=== PATIENT | female | born 1950 | race Caucasian/White ===

== ENCOUNTER 2022-09-18 05:51 | Day surgery (SDC) | payer MEDICARE, MEDICAID ==
[2022-09-16 14:33] VITALS: BMI 40.7
[2022-09-18] MEDS ORDERED: Lidocaine 1% (PF) 30 ML VIAL ONE (07:37)
[2022-09-18] MEDS ORDERED: PROPOFOL 60 ML ONE (07:37)
[2022-09-18] MEDS ORDERED: Ketamine 50 MG/ML (10ML VIAL) ONE (07:38)
[2022-09-18] MEDS ORDERED: Lidocaine 1% PF 5 ML VIAL ONE (07:39)
== END 2022-09-18 09:10 | disposition home or self-care (01) ==
LOC: CSHSDC 05:51
PROVIDERS: ATTEND Internal Medicine Gastroenterology
PROC: 0DB68ZX Excision of Stomach, Via Natural or Artificial Opening Endoscopic, Diagnostic (ICD-10-PCS; principal; 2022-09-18)
PROC: 0D757ZZ Dilation of Esophagus, Via Natural or Artificial Opening (ICD-10-PCS; 2022-09-18)
PROC: 0DBM8ZZ Excision of Descending Colon, Via Natural or Artificial Opening Endoscopic (ICD-10-PCS; 2022-09-18)
PROC: 0DBP8ZZ Excision of Rectum, Via Natural or Artificial Opening Endoscopic (ICD-10-PCS; 2022-09-18)
DX: D12.8 Benign neoplasm of rectum (principal); D12.4 Benign neoplasm of descending colon; K31.89 Other diseases of stomach and duodenum; K21.9 Gastro-esophageal reflux disease without esophagitis; K44.9 Diaphragmatic hernia without obstruction or gangrene; K64.9 Unspecified hemorrhoids; E78.5 Hyperlipidemia, unspecified; F32.A Depression, unspecified; E66.9 Obesity, unspecified; Z68.41 Body mass index [BMI] 40.0-44.9, adult; Z79.899 Other long term (current) drug therapy; Z88.2 Allergy status to sulfonamides; Z90.49 Acquired absence of other specified parts of digestive tract; Z87.891 Personal history of nicotine dependence; Z90.710 Acquired absence of both cervix and uterus
CPT/HCPCS: 88305; J2001; J2704